=== PATIENT | female | born 1950 ===

== ENCOUNTER → 2021-11-08 | Outpatient (CLI) | payer SELFPAY ==
[2021-11-14 10:11] LABS: HSV-1 DNA Negative (Negative); HSV-2 DNA Negative (Negative)
== END | disposition home or self-care (01) ==
LOC: LAB SHORT 19:17
PROVIDERS: Physician Assistant
DX: D22.5 Melanocytic nevi of trunk (principal); L57.0 Actinic keratosis; L20.89 Other atopic dermatitis; L90.0 Lichen sclerosus et atrophicus; L30.9 Dermatitis, unspecified; L08.9 Local infection of the skin and subcutaneous tissue, unspecified; L30.4 Erythema intertrigo; L57.8 Other skin changes due to chronic exposure to nonionizing radiation; L90.5 Scar conditions and fibrosis of skin; L60.8 Other nail disorders; L85.3 Xerosis cutis; L82.1 Other seborrheic keratosis; L81.4 Other melanin hyperpigmentation; Z71.89 Other specified counseling
CPT/HCPCS: 87070; 87205